=== PATIENT | female | born 1955 | race Caucasian/White ===

== ENCOUNTER 2018-03-12 16:12 | Emergency (ER) | payer MEDICAID ==
[~2018-03-12] VITALS: Ht 160 cm; Wt 87.5 kg
[2018-03-12 16:20] VITALS: Ht 160 cm; Wt 87.5 kg
[2018-03-12 18:33] VITALS: BP 121/71
== END 2018-03-12 18:33 | disposition home or self-care (01) ==
LOC: ED 16:12
DX: E11.319 Type 2 diabetes mellitus with unspecified diabetic retinopathy without macular edema (principal); H53.8 Other visual disturbances; G89.29 Other chronic pain; Z79.4 Long term (current) use of insulin; Z98.890 Other specified postprocedural states